=== PATIENT | female | born 1960 ===

== ENCOUNTER 2021-02-12 22:07 | Inpatient (IN) | payer SELFPAY ==
[2021-02-13] MEDS ORDERED: LORazepam 2 MG/ML INJ IV PRN (01:13)
[2021-02-13] MEDS ORDERED: SODIUM CHLORIDE 0.9% 1,000 ML IV SCH (01:30)
[2021-02-13 05:21] VITALS: RESP 18
[2021-02-13 06:10] LABS: Basophils % (A) 0 %; Eosinophils # (A) 0.1 k/uL (0-0.7); Eosinophils % (A) 1 %; HGB 13.8 gm/dL (11.4-16.0); Lymphocytes # (A) 1.2 k/uL (1.0-4.8); Lymphocytes % (A) 19 %; MCH 29.6 pg (25.0-35.0); MCHC 33.6 g/dL (31.0-37.0); MCV 88.2 fL (80.0-100.0); Mean Platelet Volume 7.2; Monocytes # (A) 0.4 k/uL (0-1.0); Monocytes % (A) 6 %; Neutrophils # (A) 4.6 k/uL (1.3-7.7); Neutrophils % (A) 72 %; Platelet Count 265 k/uL (150-450); RBC 4.64 m/uL (3.80-5.40); WBC 6.4 k/uL (3.8-10.6)
[2021-02-13] MEDS ORDERED: LEVOTHYROXINE 100 MCG TAB PO SCH (06:30)
[2021-02-13 06:35] LABS: Calcium 9.2 mg/dL (8.4-10.2); Magnesium 2.1 mg/dL (1.6-2.3); Potassium 3.7 mmol/L (3.5-5.1)
[2021-02-13] MEDS ORDERED: guaiFENesin 600 MG TABLET.ER PO SCH (09:00)
[2021-02-13] MEDS ORDERED: buPROPion SR 150 MG TABLET.ER PO SCH (09:00)
[2021-02-13] MEDS ORDERED: lamoTRIgine 100 MG TAB PO SCH (09:00)
--- NOTE | 2021-02-13 11:43 | P.CNNES ---
History of Present Illness Consult date: 02/13/21 Requesting physician: Herbie Rodriguez Reason for Consult: seizure History of Present Illness: This is a 60-year-old woman with history of breast cancer s/p left massectomy s/p chemo and radiation therapy, hypothyroidism and bipolar that was a direct admit for further workup of seizure episode from [facility]. She stated that the yesterday her and her family just got back from the trip from [place] and the last thing she remembers was asking about the cat. She was notified by family members that she had a seizure. After the episode she denies of any urinary or bowel incontinence. She felt her left sided tongue was sore. Again she denies any history of seizures in the past. She can't recall the event that transpired. I attempted to contact the patient but went directly to voice message. Per the ED note from outside hospital that her seizure was witnessed by family members. "She was sitting in a chair and according to her son she appears to be hallucinating she was seeing a shadow behind the window, then her eyes rolled back and she started to have upper body shaken and she was breathing heavily and not responding the. The episode lasted for about 10 minutes and she bit her tongue. Then after the episode she got up but she was confused initially and by the time EMS arrived she was feeling better but she was complaining of feeling sore, nauseous but then the felt back to baseline later". Patient denied of any focal weakness, headache, visual disturbance, difficulty getting her words out, any numbness or tingling anywhere. She denies of fever or feeling unwell. Currently she feels she is back to normal. Patient denied any previous history of seizures. She stated that the she was a product of term, vaginal delivery and that no complication. She stated that her niece and nephew in their teenage age had seizures. Otherwise no family history of seizures. Patient home medication is Lamictal 100 mg daily, Wellbutrin daily,Guaifesin 1200mg bid and Synthroid. Patient stated that she is on Lamictal 100 mg daily for bipolar and is on Wellbutrin for her mood disorder. She is seeing a psychiatrist. She stated that that she had history of left breast cancer status post mastectomy chemo and radiation therapy and last chemo and radiation was 2015. She was notified by her oncologist that she is cancer free according to the patient. Some other workup in the hospital consisted of: Initial vital signs are facility as blood pressure of 142/85, heart rate of 79, respiratory of 16, temperature of 98F oral and pulse ox of 98% room air. Her initial CBC unremarkable. Chemistry panel the glucose is 102 which is unremarkable. The only thing as remarkable as the troponin which was 0.217 and the repeat his 0.131. The CK was 674 which is elevated Some other workup at outside facility consisted of: CT of the head is reported as no acute intracranial abnormalities appreciated. Stable appearance of the brain that. She had CT angiography of the chest to rule out pulmonary embolism and is reported as no evidence of pulmonary arterial embolism. Postoperative changes of the left mastectomy and left axillary lymph node dissection. Hypodensity of the liver likely reflecting hepatic cyst. Review of Systems Review of system: The 12 point system was reviewed and apparent positive and negative per HPI. Past Medical History Past Medical History: Cancer Additional Past Medical History / Comment(s): left breast cancer History of Any Multi-Drug Resistant Organisms: None Reported Past Surgical History: Cholecystectomy Additional Past Surgical History / Comment(s): modified radical mastectomy left breast, cataract surgery both eyes Past Anesthesia/Blood Transfusion Reactions: No Reported Reaction Past Psychological History: Bipolar, Depression Smoking Status: Never smoker - Past Family History Father Family Medical History: Cancer Additional Family Medical History / Comment(s): degenerative disorer of macula Mother Additional Family Medical History / Comment(s): heart failure, glaucoma Sister(s) Family Medical History: AFIB, Diabetes Mellitus Additional Family Medical History / Comment(s): hodgkins disease Medications and Allergies Home Medications Medication Instructions Recorded Confirmed Type Levothyroxine Sodium [Synthroid] 100 mcg PO DAILY 02/13/21 02/13/21 History buPROPion XL [Wellbutrin XL] 300 mg PO DAILY 02/13/21 02/13/21 History guaiFENesin [Mucinex] 1,200 mg PO BID 02/13/21 02/13/21 History lamoTRIgine [LaMICtal] 100 mg PO DAILY 02/13/21 02/13/21 History Allergies Allergy/AdvReac Type Severity Reaction Status Date / Time adhesive tape Allergy Rash/Hives Verified 02/13/21 07:22 Physical Examination - Vital Signs Vital Signs: Vital Signs Temp Pulse Resp BP Pulse Ox 02/13/21 08:00 97.7 F 80 18 112/72 96 02/13/21 04:00 74 18 118/80 97 02/13/21 00:25 98 F 79 16 142/85 98 Intake and Output 02/12/21 02/13/21 02/13/21 22:59 06:59 14:59 Intake Total 1080 Output Total 700 Balance 380 Intake: Oral 1080 Output: Urine 700 Other: Voiding Method Bedpan Bedpan # Voids 1 Weight 101.7 kg GENERAL: The patient is lying in bed and is not in acute distress. CHEST: The heart rate is regular rate rhythm. No murmurs to auscultation. No carotid bruit bilaterally. LUNG: Clear to auscultation bilaterally no wheezing noted throughout. Not labored breathing. ABDOMEN/GI: Bowel sounds present in all 4 quadrants. No tenderness to palpation throughout. NEUROLOGICAL: Higher mental function: The patient is awake, alert, oriented to self, place and time. Patient is following commands. No aphasia and no neglect. Cranial nerves: The pupils are round, equal and reactive to light and accommodation. Visual lockwood are full to confrontation throughout. Extraocular movement is intact no nystagmus is noted. Facial sensation is normal to touch throughout. The facial strength is normal throughout. Hearing is normal bilaterally to hand rub. Tongue is midline and moved [id number] without any difficulty. She had tongue bite over the left lateral side (middle portion). No dysarthria is noted. Shoulder shrug is normal bilaterally. Motor: Gait is deferred. The strength is 5 over 5 throughout. Normal tone and bulk. Cerebellum: Normal finger to nose and heel to shelley bilaterally. Sensation: Sensation is normal to touch throughout. Reflexes (right/left): 3+ throughout except ankles are 2+ bilaterally. Plantars are downgoing bilaterally. Results - Laboratory Findings CBC and BMP: 02/13/21 05:52 02/13/21 05:52 Abnormal Lab Findings: Abnormal Labs 02/13/21 02/13/21 02/13/21 05:52 05:52 09:00 Chloride 109 H Glucose 102 H Creatine Kinase Troponin I 0.217 H* 0.131 H* 02/13/21 09:00 Chloride Glucose Creatine Kinase 674 H Troponin I Assessment and Plan Assessment: New onset seizure. Rule out brain mets especially with history of breast cancer History of breast cancer s/p left massectomy s/p chemo and radiation therapy (last chemo and radiation in 2016) Elevated troponin (likely reactive) Hypothyroidism Bipolar On Wellbutrin Plan: * I increased Lamictal from 100mg daily to 75mg 1 tab bid. In a week go up to 100mg qhs and 75mg AM. Then the following week go up to 100mg 1 tab bid. (she is using it initially for her hx of bipolar and does not want to be on other antiepileptic drugs). * I ordered a routine EEG and MRI of the brain with and without seizure p rotocol. I ordered CT head w/ and w/o since MRI likely would not be done till likely Sunday. * Patient is on seizure precaution, has seizure pad and on fall precaution. * Continued every 4 hours neuro checks. * Recommend to avoid Wellbutrin or Guaifensen which can lower the seizure thres hold. Will defer the managent adjustment of the medication to the primary team. * 2D echo is ordered by the primary team. * Cardiology team is consulted * The patient was notified that per the [facility] law because of her seizures she is to avoid driving for 6 month until seizure-free, avoid heights, swimming unassisted or using heavy machinery. * Upon discharge the patient needs to follow-up with a neurologist as outpatient within 1-2 weeks. * I attempted to contact the patient's via phone to get his version of the event but went directly to voice message. UPDATE: Patient's (Marquis) is at bedside an he stated that the patient complained that she was feeling dizzy then the she said down and then she had a scream and the was the had her hands out and moving them right and left than all of a sudden the patient had the flexor posture of her elbows and the eye de viation up and then she has some he noticed some blood coming out of her mouth during the episode she was nonresponsive. The whole flexor posture lasted for 1-2 minutes then that resolved and then the patient became limb and the entire episode of her recovering back to baseline was about possibly [address] of the head is reported as intermediate focus in the basal ganglia of the left may be vascular, thrombosed vessel will be expected to show some local changes in the brain density however, possibly calcification although Housfield unit measurements are difficult to accurely assess due to the small size. Small hemorrhage difficult to exclude. I personally reviewed the CT of the head I agree I cannot rule out hemorrhage but at the same time I cannot rule outs brain metastases. I ordered CT angiography of the head stat but was notified will not be able to do it since already received contrast. The patient wants to hold of on CTA until tomorrow. We cannot get MRI of the brain on till Sunday because of the holiday. Because of the concern of a bleed versus a mass, I'll have the patient transferred to a tertiary center for further evaluation. The plan is discussed with the patient, her who is at bedside, primary attending and her nurse. Thank you for the consultation. Trent Galvan MD Neuro-Hospitalist Time with Patient: Greater than 30
--- NOTE | 2021-02-13 12:01 | P.PN ---
Progress Note - Text Please see full dictation and is pemaer 60-year-old female who presented with a seizure I discussed this with the and he gave me a history of what exactly happened From a cardiac standpoint at twelve-lead EKG is normal She has an abnormal lipid panel but her 10 year CARTO vascular risk is around 3% She does not have a history of hypertension or diabetes or smoking Minimal alcohol use She had abnormal troponins, borderline but the CPK is greater than 640 The ratio of CPK to troponin is not consistent with an acute myocardial infarction 2-D echo and Doppler study Follow-up with Dr. Prado/Karishma Grant in 3-4 weeks thereafter
--- NOTE | 2021-02-13 12:17 | P.CRDCN ---
History of Present Illness Consult date: 02/13/21 Reason for Consult (text): Elevated troponin History of present illness: The patient is a 60-year-old female with past medical history of hypothyroidism and breast cancer, he was transferred from [facility] after having a witnessed seizure at home. According to her , she was sitting in a recliner chair when she became disoriented. She then started convulsing consistent with a tonic-clonic seizure. This lasted for several minutes, and after the convulsions stopped she remained disoriented for approximately 10-15 minutes procedure. The patient states she does not remember waking up until EMS was above her in her house. She she initially presented to [facility] and was subsequently transferred to [facility] for elevated troponins. The patient states last Sunday she did have some dizziness and lightheade dness. She and her went to [place] over the weekend and did lots of walking. The patient does believe she was dehydrated and was looking forward to resting Sunday evening when they returned. She states upon return she did feel "off." She states she's never had a history of seizures or neurological dysfunction. DIAGNOSTICS: EKG shows sinus mechanism without ST or T-wave changes CT of the head without contrast shows no acute intracranial abnormality Chest x-ray shows no acute cardiopulmonary abnormalities CT of the chest shows no evidence of pulmonary embolism Laboratory data show CRP 0.37, troponin 0.068, 0.217, 0.131, CK 674, WBC 6.4, hemoglobin 13.8, hematocrit 41.0, platelet 265, sodium 138, potassium 3.7, BUN 13, creatinine 0.91, magnesium 2.1 PAST MEDICAL HISTORY: Breast cancer status post mastectomy, hypothyroidism REVIEW OF SYSTEMS: No fever or chills. No cough or expectoration. No diaphoresis. Patient denies headache, dizziness, blurred vision, double vision. Patient denies any stomach discomfort. No nausea, vomiting. No hematochezia. No hematemesis. Denies any black stools or blood in his stools. Denies dysuria or hematuria. No muscle weakness or numbness. No chest pain or chest pressure. No dyspnea. No orthopnea PHYSICAL EXAMINATION: This is a 60-year-old year in no apparent distress at the time of my examination. HEENT: Head is atraumatic, normocephalic. Pupils are equal, round. Sclerae anicteric. Conjunctivae are clear. Mucous membranes of the mouth are moist. Neck is supple. There is no jugular venous distention. No carotid bruit is heard. CHEST EXAMINATION: Lungs are clear to auscultation. No chest wall tenderness is noted on palpation or with deep breathing. HEART EXAMINATION: Heart regular rate and rhythm. S1, S2 heard. No murmurs, gallops or rub. ABDOMEN: Soft, nontender. Bowel sounds are heard. No organomegaly noted. EXTREMITIES: 2+ peripheral pulses with no evidence of peripheral edema and no calf tenderness noted. NEUROLOGIC EXAMINATION: Patient is awake, alert and oriented x3. FINAL ASSESSMENT AND PLAN: New onset of seizures Elevated troponins, out of ratio in comparison to CK level, secondary to seizure Elevated CK Hypothyroidism Dyslipidemia, ASCVD risk score 3.3% PLAN: No changes to her medication regimen at this time Echocardiogram and Doppler studies are monitor heart structure and function Consider stress testing outpatient Further recommendations based on clinical course The patient has been seen and evaluated. Plan of care has been reviewed and agreed upon by Dr Prado. Past Medical History Past Medical History: Cancer Additional Past Medical History / Comment(s): left breast cancer History of Any Multi-Drug Resistant Organisms: None Reported Past Surgical History: Cholecystectomy Additional Past Surgical History / Comment(s): modified radical mastectomy left breast, cataract surgery both eyes Past Anesthesia/Blood Transfusion Reactions: No Reported Reaction Past Psychological History: Bipolar, Depression Smoking Status: Never smoker - Past Family History Father Family Medical History: Cancer Additional Family Medical History / Comment(s): degenerative disorer of macula Mother Additional Family Medical History / Comment(s): heart failure, glaucoma Sister(s) Family Medical History: AFIB, Diabetes Mellitus Additional Family Medical History / Comment(s): hodgkins disease Medications and Allergies Home Medications Medication Instructions Recorded Confirmed Type Levothyroxine Sodium [Synthroid] 100 mcg PO DAILY 02/13/21 02/13/21 History buPROPion XL [Wellbutrin XL] 300 mg PO DAILY 02/13/21 02/13/21 History guaiFENesin [Mucinex] 1,200 mg PO BID 02/13/21 02/13/21 History lamoTRIgine [LaMICtal] 100 mg PO DAILY 02/13/21 02/13/21 History Allergies Allergy/AdvReac Type Severity Reaction Status Date / Time adhesive tape Allergy Rash/Hives Verified 02/13/21 07:22 Physical Exam Vitals: Vital Signs Temp Pulse Resp BP Pulse Ox 02/13/21 08:00 97.7 F 80 18 112/72 96 02/13/21 04:00 74 18 118/80 97 02/13/21 00:25 98 F 79 16 142/85 98 Intake and Output 02/12/21 02/13/21 02/13/21 22:59 06:59 14:59 Intake Total 1080 Output Total 700 Balance 380 Intake: Oral 1080 Output: Urine 700 Other: Voiding Method Bedpan Bedpan # Voids 1 1 Weight 101.7 kg Results 02/13/21 05:52 02/13/21 05:52 Cardiac Enzymes 02/13/21 02/13/21 Range/Units 05:52 09:00 Troponin I 0.217 H* 0.131 H* (0.000-0.034) ng/mL CBC 02/13/21 Range/Units 05:52 WBC 6.4 (3.8-10.6) k/uL RBC 4.64 (3.80-5.40) m/uL Hgb 13.8 (11.4-16.0) gm/dL Hct 41.0 (34.0-46.0) % Plt Count 265 (150-450) k/uL Comprehensive Metabolic Panel 02/13/21 Range/Units 05:52 Sodium 138 (137-145) mmol/L Potassium 3.7 (3.5-5.1) mmol/L Chloride 109 H (98-107) mmol/L Carbon Dioxide 23 (22-30) mmol/L BUN 13 (7-17) mg/dL Creatinine 0.91 (0.52-1.04) mg/dL Glucose 102 H (74-99) mg/dL Calcium 9.2 (8.4-10.2) mg/dL Current Medications Generic Name Dose Route Start Last Admin Trade Name Freq PRN Reason Stop Dose Admin Bupropion HCl 300 mg 02/13/21 09:00 02/13/21 08:10 Bupropion Sr 150 Mg Tablet.Er PO 300 mg BID DARWIN Administration Guaifenesin 1,200 mg 02/13/21 09:00 02/13/21 08:10 Guaifenesin 600 Mg Tablet.Er PO 1,200 mg Q12HR DARWIN Administration Sodium Chloride 1,000 mls @ 75 mls/hr 02/13/21 01:30 02/13/21 05:26 Saline 0.9% IV Not Given .[id number] DARWIN Lamotrigine 75 mg 02/13/21 21:00 Lamotrigine 25 Mg Tab PO BID DARWIN Levothyroxine Sodium 100 mcg 02/13/21 06:30 02/13/21 06:33 Levothyroxine 100 Mcg Tab PO 100 mcg DAILY@0630 DARWIN Administration Lorazepam 1 mg 02/13/21 01:13 Lorazepam 2 Mg/Ml Inj IV Q1HR PRN Seizures Intake and Output 02/12/21 02/13/21 02/13/21 22:59 06:59 14:59 Intake Total 1080 Output Total 700 Balance 380 Intake: Oral 1080 Output: Urine 700 Other: Voiding Method Bedpan Bedpan # Voids 1 1 Weight 101.7 kg 02/13/21 05:52 02/13/21 05:52
--- NOTE | 2021-02-13 12:48 | CT ---
EXAMINATION TYPE: CT brain wo/w con DATE OF EXAM: 02/13/2021 COMPARISON: HISTORY: New onset seizure. CT DLP: 2268.4 mGycm Automated exposure control for dose reduction was used. CONTRAST: CT scan of the head is performed with IV Contrast, patient injected with 100 mL of Isovue 300. FINDINGS: There is no abnormal enhancing mass or midline shift identified. There is a curvilinear comma-shaped focus within the basal ganglia on the left, axial image #32 and 31 on the pre and postcontrast images . Cortical atrophy is present. The ventricles and sulci are within normal limits in size. The globes are intact and the visualized sinuses are clear. IMPRESSION: Indeterminate focus in the basal ganglia on the left may be vascular, thrombosed vessel would be expe cted to show some local changes in brain density however, possibly calcification although Hounsfield unit measurements are difficult to accurately assess due to the small size. Small hemorrhage difficul t to exclude. Brain MR may be of benefit. A [place] level critical message alert has been initiated for Krissy Bee MD via the [employer] System on 02/13/2021 12:45 PM. This message alert has been sent to Krissy Bee MD vi a the preferences provided by the clinician for the receipt of Radiology Critical Findings. Message I D [id number].
--- NOTE | 2021-02-13 18:13 | P.HPIM ---
History of Present Illness H&P Date: 02/13/21 Chief Complaint: Seizure activity 60-year-old woman with history of breast cancer s/p left massectomy s/p chemo and radiation therapy, hypothyroidism and bipolar that was a direct admit for further workup of seizure episode from [facility]. She stated that the yesterday her and her family just got back from the trip from [place] and the last thing she remembers was asking about the cat. She was notified by family members that she had a seizure. After the episode she denies of any urinary or bowel incontinence. She felt her left sided tongue was sore. The episode lasted for about 10 minutes and she bit her tongue. Then after the episode she got up but she was confused initially and by the time EMS arrived she was feeling better but she was complaining of feeling sore, nauseous but then the felt back to baseline Patient had CT of head done reported as no acute intracranial abnormalities appreciated. Stable appearance of the brain that. She had CT angiography of the chest to rule out pulmonary embolism and is reported as no evidence of pulmonary arterial embolism. Postoperative changes of the left mastectomy and left axillary lymph node dissection. Hypodensity of the liver likely reflecting hepatic cyst. Review of Systems REVIEW OF SYSTEMS: CONSTITUTIONAL: No fever, no malaise, no fatigue. HEENT: No recent visual problems or hearing problems. Denied any sore throat. CARDIOVASCULAR: No chest pain, orthopnea, PND, no palpitations, no syncope. PULMONARY: No shortness of breath, no cough, no hemoptysis. GASTROINTESTINAL: No diarrhea, no nausea, no vomiting, no abdominal pain. NEUROLOGICAL: No headaches, no weakness, no numbness. HEMATOLOGICAL: Denies any bleeding or petechiae. GENITOURINARY: Denies any burning micturition, frequency, or urgency. MUSCULOSKELETAL/RHEUMATOLOGICAL: Denies any joint pain, swelling, or any muscle pain. ENDOCRINE: Denies any polyuria or polydipsia. The rest of the 14-point review of systems is negative. Past Medical History Past Medical History: Cancer Additional Past Medical History / Comment(s): left breast cancer History of Any Multi-Drug Resistant Organisms: None Reported Past Surgical History: Cholecystectomy Additional Past Surgical History / Comment(s): modified radical mastectomy left breast, cataract surgery both eyes Past Anesthesia/Blood Transfusion Reactions: No Reported Reaction Past Psychological History: Bipolar, Depression Smoking Status: Never smoker - Past Family History Father Family Medical History: Cancer Additional Family Medical History / Comment(s): degenerative disorer of macula Mother Additional Family Medical History / Comment(s): heart failure, glaucoma Sister(s) Family Medical History: AFIB, Diabetes Mellitus Additional Family Medical History / Comment(s): hodgkins disease Medications and Allergies Home Medications Medication Instructions Recorded Confirmed Type Levothyroxine Sodium [Synthroid] 100 mcg PO DAILY 02/13/21 02/13/21 History buPROPion XL [Wellbutrin XL] 300 mg PO DAILY 02/13/21 02/13/21 History guaiFENesin [Mucinex] 1,200 mg PO BID 02/13/21 02/13/21 History lamoTRIgine [LaMICtal] 100 mg PO DAILY 02/13/21 02/13/21 History Allergies Allergy/AdvReac Type Severity Reaction Status Date / Time adhesive tape Allergy Rash/Hives Verified 02/13/21 07:22 Physical Exam Vitals: Vital Signs Temp Pulse Resp BP Pulse Ox 02/13/21 08:00 97.7 F 80 18 112/72 96 02/13/21 04:00 74 18 118/80 97 02/13/21 00:25 98 F 79 16 142/85 98 Intake and Output 02/12/21 02/13/21 02/13/21 22:59 06:59 14:59 Intake Total 1080 Output Total 700 Balance 380 Intake: Oral 1080 Output: Urine 700 Other: Voiding Method Bedpan Bedpan # Voids 1 1 Weight 101.7 kg - Constitutional General appearance: Present: average body habitus, cooperative, no acute dist ress - EENT Eyes: Present: anicteric sclerae, EOMI, PERRLA, normal appearance ENT: Present: hearing grossly normal, normal oropharynx Ears: bilateral: normal - Neck Neck: Present: normal ROM. Absent: lymphadenopathy, rigidity, thyromegaly Carotids: negative: bruit present Thyroid: bilateral: normal size, negative: enlarged, nodule - Respiratory Respiratory: bilateral: CTA, negative: rales, rhonchi, wheezing - Cardiovascular Rhythm: regular Heart sounds: normal: S1, S2 Abnormal Heart Sounds: Absent: systolic murmur, diastolic murmur - Gastrointestinal General gastrointestinal: Present: normal bowel sounds, soft. Absent: distended, organomegaly, tenderness - Genitourinary Genitourinary Comment(s): deferred - Integumentary Integumentary: Present: normal turgor. Absent: jaundiced, rash, ulcer - Neurologic Neurologic: Present: CNII-XII intact. Absent: focal deficits - Musculoskeletal Musculoskeletal: Present: gait normal, strength equal bilaterally - Psychiatric Psychiatric: Present: A&O x's 3, appropriate affect, intact judgment & insight Results CBC & Chem 7: 02/13/21 05:52 02/13/21 05:52 Labs: Abnormal Lab Results - Last 24 Hours (Table) 02/13/21 02/13/21 02/13/21 Range/Units 05:52 05:52 09:00 Chloride 109 H (98-107) mmol/L Glucose 102 H (74-99) mg/dL Creatine Kinase (30-135) U/L Troponin I 0.217 H* 0.131 H* (0.000-0.034) ng/mL 02/13/21 Range/Units 09:00 Chloride (98-107) mmol/L Glucose (74-99) mg/dL Creatine Kinase 674 H (30-135) U/L Troponin I (0.000-0.034) ng/mL Thrombosis Risk Factor Assmnt - Choose All That Apply Any of the Below Risk Factors Present?: Yes Each Factor Represents 1 point: Obesity (BMI >25) Other Risk Factors: Yes Each Risk Factor Represents 2 Points: Age 61-74 years Thrombosis Risk Factor Assessment Total Risk Factor Score: 3 Thrombosis Risk Factor Assessment Level: Moderate Risk Assessment and Plan Assessment: 1. New onset seizures - Patient is evaluated by neurology and Lamictal is increased to 75 mg twice a day with recommendation for further escalation of therapy in a week at 75 mg morning and 100 mg daily at bedtime, followed by 100 mg - Neurology recommending 2-D echo, EEG and MRI of the brain; CT of the head was ordered due to MRI not being available till Sunday; head CT with and without contrast reveals indeterminate lesion in left basal ganglia; intracerebral bleed cannot be ruled out; patient is recommended transferred for higher level of care - avoid Wellbutrin or Gu[place]ifensen which can lower the seizure threshold 2. Elevated troponin; patient has a 12-lead EKG which is normal; patient has no history of diabetes, hypertension or smoking; cardiology on board and recommending 2-D echo with Doppler and follow-up with cardiology as an outpatient 3. Possible intracerebral bleed/abnormal CT head; MRI is recommended; MRI is not available at our facility and patient will be transferred out to [facility] for further evaluation 4. Hypothyroidism; continue with home dose of levothyroxine 5. Depression/bipolar disorder; patient takes Wellbutrin which will be placed on hold per neurology recommendations; continue with Lamictal for morbid control DVT prophylaxis; SCDs only due to abnormal CT head CODE STATUS; full code
[2021-02-13 18:44] VITALS: BP 131/82; PULSE 90; TEMP 98.2
[2021-02-13] MEDS ORDERED: lamoTRIgine 25 MG TAB PO SCH (21:00)
== END 2021-02-13 19:30 | disposition other institution (70) | DRG 101 ==
LOC: 3SCARD 02-13 00:23
PROVIDERS: ADMIT Hospitalist; ATTEND Hospitalist
DX: R56.9 Unspecified convulsions (principal); Z85.3 Personal history of malignant neoplasm of breast; Z90.12 Acquired absence of left breast and nipple; Z92.21 Personal history of antineoplastic chemotherapy; Z92.3 Personal history of irradiation; E03.9 Hypothyroidism, unspecified; F31.9 Bipolar disorder, unspecified; Z82.49 Family history of ischemic heart disease and other diseases of the circulatory system; Z83.3 Family history of diabetes mellitus; Z80.7 Family history of other malignant neoplasms of lymphoid, hematopoietic and related tissues; Z79.890 Hormone replacement therapy; R77.8 Other specified abnormalities of plasma proteins; E86.0 Dehydration; K76.89 Other specified diseases of liver; Z79.899 Other long term (current) drug therapy
CPT/HCPCS: 70470; 80048; 82550; 83605; 83735; 84484; 85025; 93306